=== PATIENT | female | born 1995 | race Caucasian/White ===

== ENCOUNTER 2019-12-25 17:05 | Inpatient (IN) ==
[2019-12-25] MEDS ORDERED: OXYTOCIN 30 UNITS/500 ML BAG IV PRN (18:42)
[2019-12-25 19:06] LABS: Hematocrit (blood only) 39.1 % (37-47); Hemoglobin 12.9 g/dL (12.0-16.0); Mean Corpuscular Hemoglobin 27.1 pg (25-34); Mean Corpuscular Volume 82.1 fL (80-100); Mean Platelet Volume 10.8 fL (7.4-10.4); Platelet Count 298 K/uL (130-400); RDW Coefficient of Variation 14.2 % (11.5-14.5); RDW Standard Deviation 42.4 fL (36.4-46.3); Red Blood Count 4.76 M/uL (4.2-5.4); White Blood Count 23.53 K/uL (4.8-10.8)
[2019-12-25] MEDS: LACTATED RINGER'S 1,000 ML IV PRN ×3 (19:22→21:20)
[2019-12-25] MEDS ORDERED: ePHEDrine sulfate 50 MG/ML AMP ONE (20:25)
[2019-12-25] MEDS ORDERED: BUPIVACAINE 0.25% 30 ML VIAL ONE (20:25)
[2019-12-25] MEDS ORDERED: fentaNYL citrate 100 MCG/2 ML VIAL ONE (20:25)
[2019-12-25] MEDS ORDERED: fentaNYL 2MCG/ML ROPIV 1.25MG/ML 100 ML BAG EPI ONE (20:26)
[2019-12-25] MEDS ORDERED: NALOXONE HCL 0.4 MG/1 ML VIAL/CARP IV PRN ×2 (20:45→22:19)
[2019-12-25] MEDS ORDERED: NALBUPHINE HCL INJ 10 MG/ML AMP IV PRN ×2 (20:45→22:19)
[2019-12-25] MEDS ORDERED: ONDANSETRON INJ 2 MG/ML 2 ML VIAL IV PRN ×2 (20:45→22:19)
[2019-12-25] MEDS ORDERED: NALOXONE HCL 1 MG in SODIUM CHLORIDE 0.9% 1000ML 1,000 ML IV PRN ×2 (20:45→22:19)
[2019-12-25] MEDS ORDERED: ePHEDrine sulfate 50 MG/ML AMP IV PRN ×2 (20:45→22:19)
[2019-12-25] MEDS ORDERED: fentaNYL 2MCG/ML ROPIV 1.25MG/ML 100 ML BAG EPI PRN (20:45)
[2019-12-25] MEDS ORDERED: DiphenhydrAMINE HCL 50 MG/ML VIAL IV PRN ×2 (20:45→22:19)
--- NOTE | 2019-12-25 20:46 | Anesthesiology Consultation ---
Date of Service December 25, 2019 Assessment & Plan Chart Review Chart Review: Patient NOT seen in Pre Admission Testing and Acceptable Risk for Labor Epidural Consults Requested none ASA ASA2 Proposed Anesthesia Anesthesia Type: Labor Epidural and CSE Risk / Benefits Reviewed With: PT / POA / Parent / Guardian, Accepts Plan and Informed Consent Obtained History Height/Weight Height: 5 ft 2 in Weight: 76.204 kg Allergies Allergy/AdvReac Type Severity Reaction Status Date / Time No Known Allergies Allergy Mild Unverified 05/24/07 09:09 Medications Home Medications Medication Instructions Recorded Confirmed Last Taken PNV cmb#95-ferrous fumarate-FA 1 tab PO DAILY 12/25/19 12/25/19 12/25/19 09:00 [] albuterol sulfate 2 puff INHALATION QID PRN 12/25/19 12/25/19 Unknown Active Medications Generic Name Dose Route Start Last Admin Trade Name Freq PRN Reason Stop Dose Admin Lactated Ringer's 1,000 mls @ 125 mls/hr 12/25/19 18:42 12/25/19 20:24 Lr IV 12/27/19 18:41 999 mls/hr .Q8H PRN Administration L&D Protocol Protocol NPO Date Last Intake of Fluids: 12/25/19 Time Last Intake of Fluids: 20:30 Date Last Intake of Solids: 12/25/19 Time Last Intake of Solids: 12:30 Past Medical History Medical History Asthma as a child. Has a rescue inhaler prn Injury of right thumb surgery on right thumb age 12 Exercise / Class Metabolic Activity II 4-5 Yardwork/Stairs/Walk up hill Past Family History Family History Other No history of previous surgery No known health problems Past Anesthesia History No Hx of Anesthesia Complications and No Family Hx of Anesthesia Complications History of PONV No Hx of PONV and No Hx of Motion Sickness Social History Smoking Status: Former smoker Smoking End Date: about one year ago Hx Alcohol Use: No Hx Substance Use: No Review of Systems no chest pain or sob Physical Exam Vital Signs Last Vital Signs Temp 37.0 C 12/25/19 20:39 Pulse 120 H 12/25/19 20:43 Resp 18 12/25/19 20:39 BP 136/66 12/25/19 20:37 Pulse Ox 99 12/25/19 20:43 ENMT Mouth: no TMJ abnormality Thyromental Distance: > or= 3.5 Finger Breadths Mallampati Class: II Neck normal visual inspection Respiratory normal respiratory effort Auscultation: lungs clear to auscultation bilaterally Cardiovascular Rate/Rhythm: regular rate and regular rhythm Musculoskeletal Spine: normal cervical ROM Neurologic moves all extremities Psychiatric Orientation: alert and oriented x 3 Testing Laboratory Results 12/25/19 18:55
--- NOTE | 2019-12-25 21:30 | Obstetrical Progress Note ---
Date of Service December 25, 2019 Assessment & Plan Admission and Anticipated Discharge Date Admission Date: December 25, 2019 Subjective Called to evaluate pt with decel after Epidural analgesia On arrival to room, pt was on her left side, with oxygen and IVF @ 999 VE 9;5/100/) station FHR 70's +ve response with scalp stimulation terbutaline SQ is ordered to be given Pt is turned on her right side on on all 4 extremities FHR accelerated to baseline in the 110 Plan continue to monitor FH Results & Data ([facility]) Vital Signs (Past 12 Hours) Vital Signs Temp Pulse Resp BP Pulse Ox 12/25/19 21:24 133 H 137/64 12/25/19 21:23 128 H 100 12/25/19 21:22 112 H 143/78 H 12/25/19 21:20 109 H 152/99 H 12/25/19 21:18 115 H 122/79 100 12/25/19 21:16 107 H 115/75 12/25/19 21:14 113 H 120/58 L 12/25/19 21:13 117 H 100 12/25/19 21:12 111 H 125/59 L 12/25/19 21:10 122 H 121/54 L 12/25/19 21:08 137 H 120/63 100 12/25/19 21:06 115 H 111/55 L 12/25/19 21:04 93 H 136/58 L 12/25/19 21:03 100 H 97 12/25/19 21:02 97 H 138/66 12/25/19 20:59 100 H 133/69 12/25/19 20:58 95 H 96 12/25/19 20:53 101 H 100 12/25/19 20:48 118 H 99 12/25/19 20:43 120 H 99 12/25/19 20:39 37.0 C 18 12/25/19 20:38 117 H 97 12/25/19 20:37 86 136/66 12/25/19 19:21 85 136/72 12/25/19 17:38 37.0 C 93 H 20 137/88 12/25/19 17:21 37.0 C 93 H 16 137/88
[2019-12-25] MEDS ORDERED: TERBUTALINE SULFATE 1 MG/ML VIAL SQ ONE (21:32)
[2019-12-25] MEDS ORDERED: NALOXONE HCL 0.08 MG in SYRINGE 1.8 ML IV PRN (22:19)
[2019-12-25] MEDS ORDERED: MoRPHine SULFATE PF 1 MG/ML 10 ML AMP/VIAL EPI ONE (22:19)
[2019-12-25] MEDS ORDERED: LACTATED RINGER'S 500 ML IV PRN (22:19)
[2019-12-25] MEDS ORDERED: CITRIC ACID/SODIUM CITRATE 15 ML UDC ONE (22:19)
[2019-12-25] MEDS ORDERED: HYDROmorphone INJ 0.5 MG/0.5 ML SYR IV PRN (22:19)
[2019-12-25] MEDS ORDERED: CITRIC ACID/SODIUM CITRATE 15 ML UDC PO ONE (22:30)
[2019-12-25] MEDS ORDERED: CEFAZOLIN 2,000 MG in SYRINGE 0 ML IV ONE (22:30)
[2019-12-25] MEDS ORDERED: LACTATED RINGER'S 1,000 ML IV SCH ×2 (22:30→23:45)
[2019-12-25] MEDS ORDERED: NO NARCOTICS OR SEDATIVES SCH (22:30)
[2019-12-25] MEDS ORDERED: CEFAZOLIN 3000MG/72.5 ML BAG IV ONE (22:30)
[2019-12-25] MEDS ORDERED: SODIUM CHLORIDE 0.9% 1000ML 1,000 ML IV SCH (22:30)
[2019-12-25] MEDS ORDERED: DC INTRASPINAL MORPHINE SCH (22:30)
[2019-12-25] MEDS ORDERED: CEFAZOLIN 250 MG/ML 1 GM VIAL ONE (22:38)
[2019-12-25] MEDS ORDERED: OXYTOCIN 10 UNITS/ML VIAL ONE ×3 (22:38→22:54)
[2019-12-25] MEDS ORDERED: LIDOCAINE/EPINEPHRINE 2% 1:200,000 20 ML SDV ONE (22:38)
[2019-12-25] MEDS ORDERED: MoRPHine SULFATE PF 1 MG/ML 10 ML AMP/VIAL ONE (22:40)
[2019-12-25] MEDS ORDERED: ONDANSETRON INJ 2 MG/ML 2 ML VIAL ONE (22:54)
[2019-12-25] MEDS ORDERED: METHYLERGONOVINE MALEATE 0.2 MG/ML AMP ONE (22:55)
[2019-12-25] MEDS ORDERED: PHENYLEPHRINE 100MCG/ML 5ML SYR ONE (22:56)
[2019-12-25] MEDS ORDERED: OXYTOCIN 10 UNITS/ML VIAL IM ONE (23:10)
[2019-12-25 23:20] LABS: Base Excess Cord Venous Blood -1.6 mEq/L (-7.7-1.9); Cord Venous Blood HCO3 25 mmol/L (18.4-26.8); Cord Venous Blood PCO2 49 mmHg (30.4-57.2); Cord Venous Blood PO2 20 mmHg (14.1-43.3); Cord Venous Blood pH 7.33 (7.20-7.44)
[2019-12-25 23:22] LABS: O2 Saturation Cord Venous Bld < 60.0 % (<68)
[2019-12-25] MEDS ORDERED: miSOPROStoL 200 MCG TAB ONE (23:37)
[2019-12-25] MEDS ORDERED: DIPHTHERIA/TETANUS/PERTUSSIS 0.5 ML SYR/VIAL IM ONE (23:44)
[2019-12-25] MEDS ORDERED: MAGNESIUM HYDROXIDE SUSP 30 ML UDC PO PRN (23:44)
[2019-12-25] MEDS ORDERED: BENZOCAINE 20% AER SPR 82.5 GM CAN EXT PRN (23:44)
[2019-12-25] MEDS ORDERED: SUPERCREAM 0.870% 15 GM JAR EXT PRN (23:44)
[2019-12-25] MEDS ORDERED: SENNA 8.6 MG TAB PO PRN (23:44)
[2019-12-25] MEDS ORDERED: HYDROCORTISONE ACETATE 25 MG SUPP PR PRN (23:44)
--- NOTE | 2019-12-25 23:47 | Post Operative Brief Note ---
Immediate Post Op Note v1 Date of Surgery December 25, 2019 Pre & Post Diagnosis Operation Date: 12/25/19 22:15 Pre-Op Diagnosis: 1.) Intolerance to Labor Post-Op Diagnosis: Same as Pre Op I identified the patient and participated in the time-out.: Yes Procedure Operation Date: 12/25/19 22:15 Actual Procedures p Primary Ceasarean Section for the of a viable female child at 2248. - Vinh Blevins MD Surgeon Vinh Blevins MD Bad Credit Collector ministerio Jones Rn Estimated Blood Loss 700 Findings Consistent with Post-Op Diagnosis Drains Seo Catheter
[2019-12-26] MEDS: KETOROLAC 30 MG/ML VIAL IV PRN ×2 (01:46→07:45)
[2019-12-26] MEDS: OXYTOCIN 20 UNITS in LACTATED RINGER'S 1,000 ML IV SCH ×2 (02:07→10:55)
--- NOTE | 2019-12-26 02:39 | Anesthesiology Progress Note ---
Date of Service December 26, 2019 Anesthesia Post Procedure Vital Signs Vital Signs: Temp Pulse Resp BP Pulse Ox 12/26/19 02:05 127 H 132/59 L 12/26/19 02:04 132 H 94 12/26/19 02:00 18 12/26/19 01:59 127 H 93 12/26/19 01:54 127 H 94 12/26/19 01:49 129 H 93 12/26/19 01:44 119 H 95 12/26/19 01:39 129 H 94 12/26/19 01:38 129 H 148/64 H 12/26/19 01:34 119 H 94 12/26/19 01:30 18 12/26/19 01:29 118 H 95 12/26/19 01:28 120 H 145/65 H 12/26/19 01:24 124 H 96 12/26/19 01:19 126 H 96 12/26/19 01:18 130 H 154/74 H 12/26/19 01:14 121 H 97 12/26/19 01:09 121 H 96 12/26/19 01:08 120 H 133/62 12/26/19 01:04 121 H 95 12/26/19 01:00 18 12/26/19 00:59 129 H 99 12/26/19 00:58 125 H 131/58 L 12/26/19 00:54 126 H 97 12/26/19 00:51 129 H 122/68 12/26/19 00:50 18 12/26/19 00:49 135 H 96 12/26/19 00:46 138 H 84 L 12/26/19 00:44 131 H 97 12/26/19 00:40 18 12/26/19 00:39 134 H 95 12/26/19 00:34 139 H 100 12/26/19 00:32 140 H 94 12/26/19 00:30 18 12/26/19 00:29 147 H 97 12/26/19 00:27 139 H 91 12/26/19 00:24 136 H 100 12/26/19 00:20 138 H 18 93 12/26/19 00:19 132 H 94 12/26/19 00:18 131 H 153/86 H 12/26/19 00:15 128 H 92 12/26/19 00:14 126 H 100 05/06/20 00:10 18 12/26/19 00:09 129 H 99 05 00:04 124 H 100 12/26/19 00:02 116 H 89 L 12/26/19 00:00 36.8 C 18 12/25/19 23:59 122 H 99 05 23:54 121 H 97 12/25/19 23:49 117 H 100 12/25/19 23:46 116 H 152/57 H 12/25/19 23:45 166/115 H 12/25/19 23:44 121 H 95 05 22:27 18 12/25/19 22:23 124 H 100 05 22:19 124 H 100 12/25/19 22:15 139 H 135/65 12/25/19 22:13 148 H 100 12/25/19 22:10 121 H 133/80 12/25/19 22:08 116 H 99 12/25/19 22:05 118 H 127/61 12/25/19 22:03 119 H 99 12/25/19 22:00 18 12/25/19 21:59 121 H 131/76 12/25/19 21:58 117 H 100 05 21:55 117 H 124/66 12/25/19 21:53 117 H 99 12/25/19 21:50 122 H 134/80 12/25/19 21:48 114 H 99 05 21:44 126 H 139/69 12/25/19 21:43 122 H 100 12/25/19 21:40 122 H 143/68 H 12/25/19 21:38 121 H 98 12/25/19 21:34 114 H 143/66 H 12/25/19 21:33 119 H 100 12/25/19 21:28 120 H 126/60 100 05/05 21:26 125 H 122/72 0505 21:24 133 H 137/64 05 21:23 128 H 100 05 21:22 112 H 143/78 H 12/25/19 21:20 109 H 152/99 H 12/25/19 21:18 115 H 122/79 100 05 21:16 107 H 115/75 05 21:14 113 H 120/58 L 12/25/19 21:13 117 H 100 12/25/19 21:12 111 H 125/59 L 12/25/19 21:10 122 H 121/54 L 12/25/19 21:08 137 H 120/63 100 12/25/19 21:06 115 H 111/55 L 12/25/19 21:04 93 H 136/58 L 12/25/19 21:03 100 H 97 12/25/19 21:02 97 H 138/66 12/25/19 20:59 100 H 133/69 12/25/19 20:58 95 H 96 12/25/19 20:53 101 H 100 12/25/19 20:48 118 H 99 12/25/19 20:43 120 H 99 12/25/19 20:39 37.0 C 18 12/25/19 20:38 117 H 97 12/25/19 20:37 86 136/66 12/25/19 19:21 85 136/72 12/25/19 17:38 37.0 C 93 H 20 137/88 12/25/19 17:21 37.0 C 93 H 16 137/88 Pain Intensity Lower Abdomen: Pain Intensity: 1 Transfer of Care Handoff Completed per policy Notes Mental Status: alert / awake / arousable Patient Amnestic to Procedure: Yes Nausea / Vomiting: adequately controlled Pain: adequately controlled Airway Patency, RR, SpO2: stable & adequate BP & HR: stable & adequate Hydration State: stable & adequate Neuraxial Anesthesia: was administered and sensory block is resolving Anesthetic Complications: no major complications apparent and Pt Satisfied with anesthetic care
[2019-12-26] MEDS ORDERED: CITRIC ACID/SODIUM CITRATE 15 ML UDC PO SCH (06:00)
[2019-12-26 07:00] LABS: Hematocrit (blood only) 31.7 % (37-47); Hemoglobin 10.6 g/dL (12.0-16.0); Mean Corpuscular Hemoglobin 27.7 pg (25-34); Mean Corpuscular Hgb Conc 33.4 g/dL (32-36); Mean Platelet Volume 10.6 fL (7.4-10.4); Platelet Count 231 K/uL (130-400); RDW Coefficient of Variation 14.4 % (11.5-14.5); RDW Standard Deviation 43.3 fL (36.4-46.3); Red Blood Count 3.82 M/uL (4.2-5.4); White Blood Count 24.87 K/uL (4.8-10.8)
[2019-12-26 07:19] LABS: Basophils # (auto) 0.02 K/uL (0-0.2); Basophils % (auto) 0.1 %; Eosinophils # (auto) 0.01 K/uL (0-0.5); Immature Granulocytes # (auto) 0.16 K/uL (0.00-0.02); Immature Granulocytes % (auto) 0.6 %; Lymphocytes # (auto) 2.79 K/uL (1.2-3.4); Lymphocytes % (auto) 11.2 %; Monocytes # (auto) 2.34 K/uL (0.11-0.59); Monocytes % (auto) 9.4 %; Neutrophils # (auto) 19.55 K/uL (1.4-6.5); Neutrophils % (auto) 78.7 %
--- NOTE | 2019-12-26 09:15 | Obstetrical Progress Note ---
Date of Service December 26, 2019 Assessment & Plan Admission and Anticipated Discharge Date Admission Date: December 25, 2019 Subjective Patient is seen and examined. She feels well, no complaints. Pain is under control with oral meds. Not OOB yet Voiding without difficulty Tolerating clear diet with out N&V Flatus neg BM neg Bleeding is minimal No fever/ chills/ CP/ SOB/ N&V/ Leg pain Breast feeding without problems Vital Signs Temp Pulse Pulse Resp BP BP Pulse Ox 12/26/19 08:31 16 97 12/26/19 07:48 36.9 C 90 16 135/76 98 12/26/19 07:40 16 97 12/26/19 06:11 20 100 12/26/19 05:15 16 98 12/26/19 04:15 36.7 C 98 H 20 120/69 96 12/26/19 03:15 36.9 C 112 H 18 121/74 92 12/26/19 02:15 37 C 126 H 20 125/74 94 12/26/19 02:05 127 H 132/59 L 12/26/19 02:04 132 H 94 12/26/19 02:00 18 12/26/19 01:59 127 H 93 12/26/19 01:54 127 H 94 12/26/19 01:49 129 H 93 12/26/19 01:44 119 H 95 12/26/19 01:39 129 H 94 12/26/19 01:38 129 H 148/64 H 12/26/19 01:34 119 H 94 12/26/19 01:30 18 12/26/19 01:29 118 H 95 12/26/19 01:28 120 H 145/65 H 12/26/19 01:24 124 H 96 12/26/19 01:19 126 H 96 12/26/19 01:18 130 H 154/74 H 12/26/19 01:14 121 H 97 12/26/19 01:09 121 H 96 12/26/19 01:08 120 H 133/62 12/26/19 01:04 121 H 95 12/26/19 01:00 18 12/26/19 00:59 129 H 99 12/26/19 00:58 125 H 131/58 L 12/26/19 00:54 126 H 97 12/26/19 00:51 129 H 122/68 12/26/19 00:50 18 12/26/19 00:49 135 H 96 12/26/19 00:46 138 H 84 L 12/26/19 00:44 131 H 97 12/26/19 00:40 18 12/26/19 00:39 134 H 95 12/26/19 00:34 139 H 100 12/26/19 00:32 140 H 94 12/26/19 00:30 18 12/26/19 00:29 147 H 97 12/26/19 00:27 139 H 91 12/26/19 00:24 136 H 100 12/26/19 00:20 138 H 18 93 12/26/19 00:19 132 H 94 12/26/19 00:18 131 H 153/86 H 12/26/19 00:15 128 H 92 12/26/19 00:14 126 H 100 12/26/19 00:10 18 12/26/19 00:09 129 H 99 12/26/19 00:04 124 H 100 12/26/19 00:02 116 H 89 L 12/26/19 00:00 36.8 C 18 12/25/19 23:59 122 H 99 12/25/19 23:54 121 H 97 12/25/19 23:49 117 H 100 12/25/19 23:46 116 H 152/57 H 12/25/19 23:45 166/115 H 12/25/19 23:44 121 H 95 12/25/19 22:27 18 12/25/19 22:23 124 H 100 12/25/19 22:19 124 H 100 12/25/19 22:15 139 H 135/65 12/25/19 22:13 148 H 100 12/25/19 22:10 121 H 133/80 12/25/19 22:08 116 H 99 12/25/19 22:05 118 H 127/61 12/25/19 22:03 119 H 99 12/25/19 22:00 18 12/25/19 21:59 121 H 131/76 12/25/19 21:58 117 H 100 12/25/19 21:55 117 H 124/66 12/25/19 21:53 117 H 99 12/25/19 21:50 122 H 134/80 12/25/19 21:48 114 H 99 12/25/19 21:44 126 H 139/69 12/25/19 21:43 122 H 100 12/25/19 21:40 122 H 143/68 H 12/25/19 21:38 121 H 98 12/25/19 21:34 114 H 143/66 H 12/25/19 21:33 119 H 100 12/25/19 21:28 120 H 126/60 100 12/25/19 21:26 125 H 122/72 12/25/19 21:24 133 H 137/64 12/25/19 21:23 128 H 100 12/25/19 21:22 112 H 143/78 H 12/25/19 21:20 109 H 152/99 H 12/25/19 21:18 115 H 122/79 100 12/25/19 21:16 107 H 115/75 Pulse Ox 12/26/19 08:31 12/26/19 07:48 12/26/19 07:40 12/26/19 06:11 12/26/19 05:15 12/26/19 04:15 12/26/19 03:15 12/26/19 02:15 94 12/26/19 02:05 12/26/19 02:04 12/26/19 02:00 12/26/19 01:59 12/26/19 01:54 12/26/19 01:49 12/26/19 01:44 12/26/19 01:39 12/26/19 01:38 12/26/19 01:34 12/26/19 01:30 12/26/19 01:29 12/26/19 01:28 12/26/19 01:24 12/26/19 01:19 12/26/19 01:18 12/26/19 01:14 12/26/19 01:09 12/26/19 01:08 12/26/19 01:04 12/26/19 01:00 12/26/19 00:59 12/26/19 00:58 12/26/19 00:54 12/26/19 00:51 12/26/19 00:50 12/26/19 00:49 12/26/19 00:46 12/26/19 00:44 12/26/19 00:40 12/26/19 00:39 12/26/19 00:34 12/26/19 00:32 12/26/19 00:30 12/26/19 00:29 12/26/19 00:27 12/26/19 00:24 12/26/19 00:20 12/26/19 00:19 12/26/19 00:18 12/26/19 00:15 12/26/19 00:14 12/26/19 00:10 12/26/19 00:09 12/26/19 00:04 12/26/19 00:02 12/26/19 00:00 12/25/19 23:59 12/25/19 23:54 12/25/19 23:49 12/25/19 23:46 12/25/19 23:45 12/25/19 23:44 12/25/19 22:27 12/25/19 22:23 12/25/19 22:19 12/25/19 22:15 12/25/19 22:13 12/25/19 22:10 12/25/19 22:08 12/25/19 22:05 12/25/19 22:03 12/25/19 22:00 12/25/19 21:59 12/25/19 21:58 12/25/19 21:55 12/25/19 21:53 12/25/19 21:50 12/25/19 21:48 12/25/19 21:44 12/25/19 21:43 12/25/19 21:40 12/25/19 21:38 12/25/19 21:34 12/25/19 21:33 12/25/19 21:28 12/25/19 21:26 12/25/19 21:24 12/25/19 21:23 12/25/19 21:22 12/25/19 21:20 12/25/19 21:18 12/25/19 21:16 Lab Results 12/25/19 12/25/19 12/26/19 Range/Units 18:55 23:05 06:50 WBC 23.53 H 24.87 H (4.8-10.8) K/uL RBC 4.76 3.82 L (4.2-5.4) M/uL Hgb 12.9 10.6 L (12.0-16.0) g/dL Hct 39.1 31.7 L (37-47) % MCV 82.1 83.0 (80-100) fL MCH 27.1 27.7 (25-34) pg MCHC 33.0 33.4 (32-36) g/dL RDW Std Deviation 42.4 43.3 (36.4-46.3) fL RDW Coeff of Aniya 14.2 14.4 (11.5-14.5) % Plt Count 298 231 (130-400) K/uL MPV 10.8 H 10.6 H (7.4-10.4) fL Immature Gran % (Auto) 0.6 % Neut % (Auto) 78.7 % Lymph % (Auto) 11.2 % [place] % (Auto) 9.4 % Eos % (Auto) 0.0 % Baso % (Auto) 0.1 % Immature Gran # (Auto) 0.16 H (0.00-0.02) K/uL Neut # (Auto) 19.55 H (1.4-6.5) K/uL Lymph # (Auto) 2.79 (1.2-3.4) K/uL [place] # (Auto) 2.34 H (0.11-0.59) K/uL Eos # (Auto) 0.01 (0-0.5) K/uL Baso # (Auto) 0.02 (0-0.2) K/uL Cord VBG pH 7.33 (7.20-7.44) Cord VBG pCO2 49 (30.4-57.2) mmHg Cord VBG pO2 20 (14.1-43.3) mmHg Cord VBG HCO3 25 (18.4-26.8) mmol/L Cord VBG Base Excess -1.6 (-7.7-1.9) mEq/L Cord VBG O2 Sat < 60.0 (<68) % Barometric Pressure 728.4 mm/Hg Blood Gas Comments A PE: General: Alert, orientedx3, NAD CVS: S1S2 RRR Lungs; CTAB Abd: soft, NT, ND, BS+, fundus firm, below Umbilicus Incision: Clean, dry, intact Perineum intact, Lochia rubra minimal Ext; NT, no edema, SCD's on AP: 24 yo s/p C Section, pod# 1 VSS Afebrile doing well Continue routine postop care Encourage ambulation, PO intake All questions were answered Results & Data ([facility]) Vital Signs (Past 12 Hours) Vital Signs Temp Pulse Pulse Resp BP BP Pulse Ox 12/26/19 08:31 16 97 12/26/19 07:48 36.9 C 90 16 135/76 98 12/26/19 07:40 16 97 12/26/19 06:11 20 100 12/26/19 05:15 16 98 12/26/19 04:15 36.7 C 98 H 20 120/69 96 12/26/19 03:15 36.9 C 112 H 18 121/74 92 12/26/19 02:15 37 C 126 H 20 125/74 94 12/26/19 02:05 127 H 132/59 L 12/26/19 02:04 132 H 94 12/26/19 02:00 18 12/26/19 01:59 127 H 93 12/26/19 01:54 127 H 94 12/26/19 01:49 129 H 93 12/26/19 01:44 119 H 95 12/26/19 01:39 129 H 94 12/26/19 01:38 129 H 148/64 H 12/26/19 01:34 119 H 94 12/26/19 01:30 18 12/26/19 01:29 118 H 95 12/26/19 01:28 120 H 145/65 H 12/26/19 01:24 124 H 96 12/26/19 01:19 126 H 96 12/26/19 01:18 130 H 154/74 H 12/26/19 01:14 121 H 97 12/26/19 01:09 121 H 96 12/26/19 01:08 120 H 133/62 12/26/19 01:04 121 H 95 12/26/19 01:00 18 12/26/19 00:59 129 H 99 12/26/19 00:58 125 H 131/58 L 12/26/19 00:54 126 H 97 12/26/19 00:51 129 H 122/68 12/26/19 00:50 18 12/26/19 00:49 135 H 96 12/26/19 00:46 138 H 84 L 12/26/19 00:44 131 H 97 12/26/19 00:40 18 12/26/19 00:39 134 H 95 12/26/19 00:34 139 H 100 12/26/19 00:32 140 H 94 12/26/19 00:30 18 12/26/19 00:29 147 H 97 12/26/19 00:27 139 H 91 12/26/19 00:24 136 H 100 12/26/19 00:20 138 H 18 93 12/26/19 00:19 132 H 94 12/26/19 00:18 131 H 153/86 H 12/26/19 00:15 128 H 92 12/26/19 00:14 126 H 100 12/26/19 00:10 18 12/26/19 00:09 129 H 99 12/26/19 00:04 124 H 100 12/26/19 00:02 116 H 89 L 12/26/19 00:00 36.8 C 18 12/25/19 23:59 122 H 99 12/25/19 23:54 121 H 97 12/25/19 23:49 117 H 100 12/25/19 23:46 116 H 152/57 H 12/25/19 23:45 166/115 H 12/25/19 23:44 121 H 95 12/25/19 22:27 18 12/25/19 22:23 124 H 100 12/25/19 22:19 124 H 100 12/25/19 22:15 139 H 135/65 12/25/19 22:13 148 H 100 12/25/19 22:10 121 H 133/80 12/25/19 22:08 116 H 99 12/25/19 22:05 118 H 127/61 12/25/19 22:03 119 H 99 12/25/19 22:00 18 12/25/19 21:59 121 H 131/76 12/25/19 21:58 117 H 100 12/25/19 21:55 117 H 124/66 12/25/19 21:53 117 H 99 12/25/19 21:50 122 H 134/80 05 21:48 114 H 99 12/25/19 21:44 126 H 139/69 05 21:43 122 H 100 12/25/19 21:40 122 H 143/68 H 0505 21:38 121 H 98 12/25/19 21:34 114 H 143/66 H 05/05/20 21:33 119 H 100 12/25/19 21:28 120 H 126/60 100 12/25/19 21:26 125 H 122/72 12/25/19 21:24 133 H 137/64 12/25/19 21:23 128 H 100 12/25/19 21:22 112 H 143/78 H 12/25/19 21:20 109 H 152/99 H 12/25/19 21:18 115 H 122/79 100 12/25/19 21:16 107 H 115/75 12/25/19 21:14 113 H 120/58 L 12/25/19 21:13 117 H 100 Pulse Ox 12/26/19 08:31 12/26/19 07:48 12/26/19 07:40 12/26/19 06:11 12/26/19 05:15 12/26/19 04:15 12/26/19 03:15 12/26/19 02:15 94 12/26/19 02:05 12/26/19 02:04 12/26/19 02:00 12/26/19 01:59 12/26/19 01:54 12/26/19 01:49 12/26/19 01:44 12/26/19 01:39 12/26/19 01:38 12/26/19 01:34 12/26/19 01:30 12/26/19 01:29 12/26/19 01:28 12/26/19 01:24 12/26/19 01:19 12/26/19 01:18 12/26/19 01:14 12/26/19 01:09 12/26/19 01:08 12/26/19 01:04 12/26/19 01:00 12/26/19 00:59 12/26/19 00:58 12/26/19 00:54 12/26/19 00:51 12/26/19 00:50 12/26/19 00:49 12/26/19 00:46 12/26/19 00:44 12/26/19 00:40 12/26/19 00:39 12/26/19 00:34 12/26/19 00:32 12/26/19 00:30 12/26/19 00:29 12/26/19 00:27 05/06 00:24 05/02/08 00:20 05/02/08 00:19 05/02/08 00:18 05 00:15 05 00:14 05 00:10 05 00:09 05 00:04 05 00:02 05 00:00 05 23:59 05/05 23:54 05/05 23:49 05/0520 23:46 05/0520 23:45 05/0520 23:44 05/0520 22:27 05/0520 22:23 05/0520 22:19 05/0520 22:15 05/0520 22:13 05/0520 22:10 05/0520 22:08 05/0520 22:05 05/0520 22:03 05/0520 22:00 05/0520 21:59 05/0520 21:58 05/05/20 21:55 05/05/20 21:53 05/05/20 21:50 05/05/20 21:48 05/05/20 21:44 05/05/20 21:43 05/05/20 21:40 05/05/20 21:38 05/05/20 21:34 05/05/20 21:33 05/05/20 21:28 05/05/20 21:26 05/05/20 21:24 05/05/20 21:23 05/05/20 21:22 05/05/20 21:20 05/05/20 21:18 05/05/20 21:16 05/05/20 21:14 05/05/20 21:13
--- NOTE | 2019-12-26 09:30 | Operative Report (OR) ---
DATE OF OPERATION: 12/25/2019 INDICATION FOR SURGERY: This is a 24-year-old G1, P0, presented this morning with possible rupture of membranes. The patient was laboring and she went on to be fully dilated. After receiving epidural, she experienced bradycardia for 7 minutes. Resuscitation was performed. The patient did well. She experienced another deceleration in the 80s for about 4 minutes. Her exam was unchanged. She was fully dilated and 0 station. Decision was therefore made to perform section. PREOPERATIVE DIAGNOSES: 1. at term. 2. intolerance to labor. 3. Nonreassuring heart rate. POSTOPERATIVE DIAGNOSES: 1. at term. 2. intolerance to labor. 3. Nonreassuring heart rate. SURGEON: Vinh Blevins MD. HORSE TRAINER: Mariann Khan. ANESTHESIOLOGIST: Dr. Evangelista. ANESTHESIA: Epidural anesthesia. ESTIMATED BLOOD LOSS: 700 mL. IV FLUIDS: 1400 mL. URINE OUTPUT: 425 mL clear urine at the end of the procedure. FINDINGS: Live in occiput posterior presentation. There was no meconium. No nuchal cord noted. The uterus and adnexa appeared grossly normal. Rest of abdominal and pelvic exam is unremarkable. COMPLICATIONS: None. DRAINS: Seo catheter. PATHOLOGY: Placenta. DISPOSITION: Stable to recovery room. DESCRIPTION OF PROCEDURE: The patient was taken to the operating room where she was prepped and draped in normal sterile fashion. A Pfannenstiel incision was made after timeout was called and carried down to the fascia with a scalpel. Fascia was incised in the midline and extended laterally on both sides. Two Kochers were used to grab the anterior part of the fascia. Fascia was sharply dissected off the rectus abdominus muscle. Same procedure was performed inferiorly. Peritoneum was identified and entered sharply. An Jenaro retractor was used for retraction. The vesicouterine peritoneum was sharply dissected off the lower segment of the uterus. Transverse incision was made in the lower segment of the uterus and extended laterally on both sides with bandage scissors. is in an occiput posterior presentation. A Victus retractor was used to deliver the patient's fetus out of the pelvis. was delivered. Cord was clamped and cut and handed over to the pediatric team. Infant's weight and Apgars in the pediatric record. Placenta was manually removed. Uterus was exteriorized and cleared of all clots and debris. Uterus was closed in 2 layers with Vicryl stitch. There was good hemostasis. The uterus was returned to the abdominal cavity. A Victus retractor was removed. A vesicouterine peritoneum were approximated using plain suture. The fascia was closed in a running fashion using Vicryl stitch. SubQ space was irrigated and skin was closed with Monocryl stitch. All instruments were removed from the vagina and accounted for x2 including sponges, needles and retractors. Baby and mother are doing well in recovery. I attest to the content of the Intraoperative Record and any orders documented therein. Any exception s are noted below.
[2019-12-26] MEDS: SIMETHICONE 80 MG CHEW PO SCH ×4 (09:35→20:50)
[2019-12-26] MEDS: DOCUSATE SODIUM 100 MG CAP PO SCH ×2 (09:35→20:49)
[2019-12-26] MEDS: PRENATAL VITAMIN 1 TAB PO SCH (09:35)
[2019-12-26] MEDS: FERROUS SULFATE 325 MG TAB PO SCH (09:35)
--- NOTE | 2019-12-26 11:17 | Anesthesiology Progress Note ---
Date of Service December 26, 2019 Anesthesia Post Procedure Vital Signs Vital Signs: Temp Pulse Pulse Resp BP BP Pulse Ox 12/26/19 11:06 16 97 12/26/19 10:08 16 98 12/26/19 09:37 16 98 12/26/19 08:31 16 97 12/26/19 07:48 36.9 C 90 16 135/76 98 12/26/19 07:40 16 97 12/26/19 06:11 20 100 12/26/19 05:15 16 98 12/26/19 04:15 36.7 C 98 H 20 120/69 96 12/26/19 03:15 36.9 C 112 H 18 121/74 92 12/26/19 02:15 37 C 126 H 20 125/74 94 12/26/19 02:05 127 H 132/59 L 12/26/19 02:04 132 H 94 12/26/19 02:00 18 12/26/19 01:59 127 H 93 12/26/19 01:54 127 H 94 12/26/19 01:49 129 H 93 12/26/19 01:44 119 H 95 12/26/19 01:39 129 H 94 12/26/19 01:38 129 H 148/64 H 12/26/19 01:34 119 H 94 12/26/19 01:30 18 12/26/19 01:29 118 H 95 12/26/19 01:28 120 H 145/65 H 12/26/19 01:24 124 H 96 12/26/19 01:19 126 H 96 12/26/19 01:18 130 H 154/74 H 12/26/19 01:14 121 H 97 12/26/19 01:09 121 H 96 12/26/19 01:08 120 H 133/62 12/26/19 01:04 121 H 95 12/26/19 01:00 18 12/26/19 00:59 129 H 99 12/26/19 00:58 125 H 131/58 L 12/26/19 00:54 126 H 97 12/26/19 00:51 129 H 122/68 12/26/19 00:50 18 12/26/19 00:49 135 H 96 12/26/19 00:46 138 H 84 L 12/26/19 00:44 131 H 97 12/26/19 00:40 18 12/26/19 00:39 134 H 95 12/26/19 00:34 139 H 100 12/26/19 00:32 140 H 94 12/26/19 00:30 18 12/26/19 00:29 147 H 97 12/26/19 00:27 139 H 91 12/26/19 00:24 136 H 100 12/26/19 00:20 138 H 18 93 12/26/19 00:19 132 H 94 12/26/19 00:18 131 H 153/86 H 12/26/19 00:15 128 H 92 12/26/19 00:14 126 H 100 12/26/19 00:10 18 12/26/19 00:09 129 H 99 12/26/19 00:04 124 H 100 12/26/19 00:02 116 H 89 L 12/26/19 00:00 36.8 C 18 12/25/19 23:59 122 H 99 12/25/19 23:54 121 H 97 12/25/19 23:49 117 H 100 12/25/19 23:46 116 H 152/57 H 12/25/19 23:45 166/115 H 12/25/19 23:44 121 H 95 12/25/19 22:27 18 12/25/19 22:23 124 H 100 12/25/19 22:19 124 H 100 12/25/19 22:15 139 H 135/65 12/25/19 22:13 148 H 100 12/25/19 22:10 121 H 133/80 12/25/19 22:08 116 H 99 12/25/19 22:05 118 H 127/61 12/25/19 22:03 119 H 99 12/25/19 22:00 18 12/25/19 21:59 121 H 131/76 12/25/19 21:58 117 H 100 12/25/19 21:55 117 H 124/66 12/25/19 21:53 117 H 99 12/25/19 21:50 122 H 134/80 12/25/19 21:48 114 H 99 12/25/19 21:44 126 H 139/69 12/25/19 21:43 122 H 100 12/25/19 21:40 122 H 143/68 H 12/25/19 21:38 121 H 98 12/25/19 21:34 114 H 143/66 H 12/25/19 21:33 119 H 100 12/25/19 21:28 120 H 126/60 100 12/25/19 21:26 125 H 122/72 12/25/19 21:24 133 H 137/64 12/25/19 21:23 128 H 100 12/25/19 21:22 112 H 143/78 H 12/25/19 21:20 109 H 152/99 H 12/25/19 21:18 115 H 122/79 100 12/25/19 21:16 107 H 115/75 12/25/19 21:14 113 H 120/58 L 12/25/19 21:13 117 H 100 12/25/19 21:12 111 H 125/59 L 12/25/19 21:10 122 H 121/54 L 12/25/19 21:08 137 H 120/63 100 12/25/19 21:06 115 H 111/55 L 12/25/19 21:04 93 H 136/58 L 12/25/19 21:03 100 H 97 12/25/19 21:02 97 H 138/66 12/25/19 20:59 100 H 133/69 12/25/19 20:58 95 H 96 12/25/19 20:53 101 H 100 12/25/19 20:48 118 H 99 12/25/19 20:43 120 H 99 12/25/19 20:39 37.0 C 18 12/25/19 20:38 117 H 97 12/25/19 20:37 86 136/66 12/25/19 19:21 85 136/72 12/25/19 17:38 37.0 C 93 H 20 137/88 12/25/19 17:21 37.0 C 93 H 16 137/88 Pulse Ox 12/26/19 11:06 12/26/19 10:08 12/26/19 09:37 12/26/19 08:31 12/26/19 07:48 12/26/19 07:40 12/26/19 06:11 12/26/19 05:15 12/26/19 04:15 12/26/19 03:15 12/26/19 02:15 94 12/26/19 02:05 12/26/19 02:04 12/26/19 02:00 12/26/19 01:59 12/26/19 01:54 12/26/19 01:49 12/26/19 01:44 12/26/19 01:39 12/26/19 01:38 12/26/19 01:34 12/26/19 01:30 12/26/19 01:29 12/26/19 01:28 12/26/19 01:24 12/26/19 01:19 12/26/19 01:18 12/26/19 01:14 12/26/19 01:09 12/26/19 01:08 12/26/19 01:04 12/26/19 01:00 12/26/19 00:59 12/26/19 00:58 12/26/19 00:54 12/26/19 00:51 12/26/19 00:50 12/26/19 00:49 12/26/19 00:46 12/26/19 00:44 12/26/19 00:40 12/26/19 00:39 12/26/19 00:34 12/26/19 00:32 12/26/19 00:30 12/26/19 00:29 12/26/19 00:27 12/26/19 00:24 12/26/19 00:20 12/26/19 00:19 12/26/19 00:18 12/26/19 00:15 12/26/19 00:14 12/26/19 00:10 12/26/19 00:09 12/26/19 00:04 12/26/19 00:02 12/26/19 00:00 12/25/19 23:59 12/25/19 23:54 12/25/19 23:49 12/25/19 23:46 12/25/19 23:45 12/25/19 23:44 12/25/19 22:27 12/25/19 22:23 12/25/19 22:19 12/25/19 22:15 12/25/19 22:13 12/25/19 22:10 12/25/19 22:08 12/25/19 22:05 12/25/19 22:03 12/25/19 22:00 12/25/19 21:59 12/25/19 21:58 12/25/19 21:55 12/25/19 21:53 12/25/19 21:50 12/25/19 21:48 12/25/19 21:44 12/25/19 21:43 12/25/19 21:40 12/25/19 21:38 12/25/19 21:34 12/25/19 21:33 12/25/19 21:28 12/25/19 21:26 12/25/19 21:24 12/25/19 21:23 12/25/19 21:22 12/25/19 21:20 12/25/19 21:18 12/25/19 21:16 12/25/19 21:14 12/25/19 21:13 12/25/19 21:12 12/25/19 21:10 12/25/19 21:08 12/25/19 21:06 12/25/19 21:04 12/25/19 21:03 12/25/19 21:02 12/25/19 20:59 12/25/19 20:58 12/25/19 20:53 12/25/19 20:48 12/25/19 20:43 12/25/19 20:39 12/25/19 20:38 12/25/19 20:37 12/25/19 19:21 12/25/19 17:38 12/25/19 17:21 Pain Intensity Lower Abdomen: Pain Intensity: 1 Transfer of Care Handoff Completed per policy Notes Mental Status: alert / awake / arousable Nausea / Vomiting: adequately controlled Pain: adequately controlled Airway Patency, RR, SpO2: stable & adequate BP & HR: stable & adequate Hydration State: stable & adequate Neuraxial Anesthesia: was administered and sensory block resolved Anesthetic Complications: no major complications apparent
[2019-12-26] MEDS ORDERED: PROMETHAZINE HCL 25 MG in SODIUM CHLORIDE 0.9% 50 ML IV PRN (16:19)
[2019-12-26] MEDS ORDERED: ONDANSETRON INJ 2 MG/ML 2 ML VIAL IV PRN (16:19)
[2019-12-26] MEDS ORDERED: DiphenhydrAMINE HCL 50 MG/ML VIAL IV PRN (16:19)
[2019-12-26] MEDS: IBUPROFEN 600 MG TAB PO PRN ×2 (16:23→20:49)
[2019-12-26] MEDS ORDERED: bisacodyL 5 MG TABEC PO SCH (20:00)
[2019-12-26] MEDS: OXYCODONE/ACETAMINOPHEN 5mg/325mg TAB PO PRN (22:31)
[2019-12-27 06:44] LABS: Basophils # (auto) 0.04 K/uL (0-0.2); Basophils % (auto) 0.2 %; Eosinophils # (auto) 0.07 K/uL (0-0.5); Eosinophils % (auto) 0.3 %; Hematocrit (blood only) 34.1 % (37-47); Hemoglobin 11.1 g/dL (12.0-16.0); Immature Granulocytes # (auto) 0.14 K/uL (0.00-0.02); Immature Granulocytes % (auto) 0.7 %; Lymphocytes # (auto) 2.71 K/uL (1.2-3.4); Lymphocytes % (auto) 12.8 %; Mean Corpuscular Hemoglobin 27.3 pg (25-34); Mean Corpuscular Hgb Conc 32.6 g/dL (32-36); Mean Platelet Volume 10.7 fL (7.4-10.4); Monocytes # (auto) 1.88 K/uL (0.11-0.59); Monocytes % (auto) 8.9 %; Neutrophils # (auto) 16.28 K/uL (1.4-6.5); Neutrophils % (auto) 77.1 %; Platelet Count 267 K/uL (130-400); RDW Coefficient of Variation 14.8 % (11.5-14.5); RDW Standard Deviation 45.4 fL (36.4-46.3); Red Blood Count 4.06 M/uL (4.2-5.4); White Blood Count 21.12 K/uL (4.8-10.8)
[2019-12-27] MEDS: OXYCODONE/ACETAMINOPHEN 5mg/325mg TAB PO PRN ×4 (07:10→20:28)
[2019-12-27] MEDS: IBUPROFEN 600 MG TAB PO PRN ×4 (07:11→20:29)
[2019-12-27] MEDS: DOCUSATE SODIUM 100 MG CAP PO SCH ×2 (07:51→20:28)
[2019-12-27] MEDS: FERROUS SULFATE 325 MG TAB PO SCH (07:51)
[2019-12-27] MEDS: PRENATAL VITAMIN 1 TAB PO SCH (07:51)
[2019-12-27] MEDS: SIMETHICONE 80 MG CHEW PO SCH ×4 (07:51→20:28)
--- NOTE | 2019-12-27 10:50 | Surgery Progress Note ---
Date of Service December 27, 2019 Subjective PPD#2 doing well out of bed tolerating diet passing gas Physical Exam Constitutional: WD/WN, vitals as above comfortable incision clean dry and intact no edema neg Rossy's Results & Data Vital Signs (Past 12 Hours) Vital Signs Temp Pulse Resp BP Pulse Ox 12/27/19 07:55 36.7 C 91 H 16 130/81 96 12/26/19 23:35 36.6 C 82 18 97/62 L 98
[2019-12-27] MEDS ORDERED: bisacodyL 10 MG SUPP PR PRN (23:44)
[2019-12-28] MEDS: OXYCODONE/ACETAMINOPHEN 5mg/325mg TAB PO PRN ×3 (00:26→09:02)
[2019-12-28] MEDS: IBUPROFEN 600 MG TAB PO PRN ×3 (00:27→09:02)
--- NOTE | 2019-12-28 07:35 | Obstetrical Progress Note ---
Date of Service December 28, 2019 Assessment & Plan Admission and Anticipated Discharge Date Admission Date: December 25, 2019 Subjective Patient is seen and examined. She feels well, no complaints. Wants to be discharged today Pain is under control with oral meds. Ambulating without dizziness Voiding without difficulty Tolerating regular diet with out N&V Flatus + BM neg Bleeding is minimal No fever/ chills/ CP/ SOB/ N&V/ Leg pain Breast feeding without problems Vital Signs Temp Pulse Resp BP Pulse Ox 12/28/19 00:00 36.7 C 92 H 18 116/76 97 12/27/19 19:40 36.5 C 87 18 126/79 96 12/27/19 15:00 36.6 C 89 16 117/74 98 12/27/19 07:55 36.7 C 91 H 16 130/81 96 Lab Results 12/25/19 12/25/19 12/26/19 Range/Units 18:55 23:05 06:50 WBC 23.53 H 24.87 H (4.8-10.8) K/uL RBC 4.76 3.82 L (4.2-5.4) M/uL Hgb 12.9 10.6 L (12.0-16.0) g/dL Hct 39.1 31.7 L (37-47) % MCV 82.1 83.0 (80-100) fL MCH 27.1 27.7 (25-34) pg MCHC 33.0 33.4 (32-36) g/dL RDW Std Deviation 42.4 43.3 (36.4-46.3) fL RDW Coeff of Aniya 14.2 14.4 (11.5-14.5) % Plt Count 298 231 (130-400) K/uL MPV 10.8 H 10.6 H (7.4-10.4) fL Immature Gran % (Auto) 0.6 % Neut % (Auto) 78.7 % Lymph % (Auto) 11.2 % [place] % (Auto) 9.4 % Eos % (Auto) 0.0 % Baso % (Auto) 0.1 % Immature Gran # (Auto) 0.16 H (0.00-0.02) K/uL Neut # (Auto) 19.55 H (1.4-6.5) K/uL Lymph # (Auto) 2.79 (1.2-3.4) K/uL [place] # (Auto) 2.34 H (0.11-0.59) K/uL Eos # (Auto) 0.01 (0-0.5) K/uL Baso # (Auto) 0.02 (0-0.2) K/uL Cord VBG pH 7.33 (7.20-7.44) Cord VBG pCO2 49 (30.4-57.2) mmHg Cord VBG pO2 20 (14.1-43.3) mmHg Cord VBG HCO3 25 (18.4-26.8) mmol/L Cord VBG Base Excess -1.6 (-7.7-1.9) mEq/L Cord VBG O2 Sat < 60.0 (<68) % Barometric Pressure 728.4 mm/Hg Blood Gas Comments INFANT A 12/27/19 Range/Units 06:24 WBC 21.12 H (4.8-10.8) K/uL RBC 4.06 L (4.2-5.4) M/uL Hgb 11.1 L (12.0-16.0) g/dL Hct 34.1 L (37-47) % MCV 84.0 (80-100) fL MCH 27.3 (25-34) pg MCHC 32.6 (32-36) g/dL RDW Std Deviation 45.4 (36.4-46.3) fL RDW Coeff of Aniya 14.8 H (11.5-14.5) % Plt Count 267 (130-400) K/uL MPV 10.7 H (7.4-10.4) fL Immature Gran % (Auto) 0.7 % Neut % (Auto) 77.1 % Lymph % (Auto) 12.8 % [place] % (Auto) 8.9 % Eos % (Auto) 0.3 % Baso % (Auto) 0.2 % Immature Gran # (Auto) 0.14 H (0.00-0.02) K/uL Neut # (Auto) 16.28 H (1.4-6.5) K/uL Lymph # (Auto) 2.71 (1.2-3.4) K/uL [place] # (Auto) 1.88 H (0.11-0.59) K/uL Eos # (Auto) 0.07 (0-0.5) K/uL Baso # (Auto) 0.04 (0-0.2) K/uL Cord VBG pH (7.20-7.44) Cord VBG pCO2 (30.4-57.2) mmHg Cord VBG pO2 (14.1-43.3) mmHg Cord VBG HCO3 (18.4-26.8) mmol/L Cord VBG Base Excess (-7.7-1.9) mEq/L Cord VBG O2 Sat (<68) % Barometric Pressure mm/Hg Blood Gas Comments PE: General: Alert, orientedx3, NAD CVS: S1S2 RRR Lungs; CTAB Abd: soft, NT, ND, BS+, fundus firm, below Umbilicus Incision: Clean, dry, intact Perineum intact, Lochia rubra minimal Ext; NT, no edema AP: 24 yo s/p C Section, pod# 3 VSS Afebrile doing well Continue routine postop care Encourage ambulation, PO intake All questions were answered D/C home , f/u in office Discussed when to call Results & Data ([facility]) Vital Signs (Past 12 Hours) Vital Signs Temp Pulse Resp BP Pulse Ox 12/28/19 00:00 36.7 C 92 H 18 116/76 97 12/27/19 19:40 36.5 C 87 18 126/79 96
[2019-12-28 07:50] LABS: Basophils # (auto) 0.05 K/uL (0-0.2); Basophils % (auto) 0.3 %; Eosinophils % (auto) 2.3 %; Hematocrit (blood only) 31.9 % (37-47); Hemoglobin 10.4 g/dL (12.0-16.0); Immature Granulocytes # (auto) 0.11 K/uL (0.00-0.02); Immature Granulocytes % (auto) 0.6 %; Lymphocytes # (auto) 3.47 K/uL (1.2-3.4); Lymphocytes % (auto) 19.9 %; Mean Corpuscular Hemoglobin 27.5 pg (25-34); Mean Corpuscular Hgb Conc 32.6 g/dL (32-36); Mean Corpuscular Volume 84.4 fL (80-100); Mean Platelet Volume 10.4 fL (7.4-10.4); Neutrophils # (auto) 11.98 K/uL (1.4-6.5); Neutrophils % (auto) 68.9 %; Platelet Count 273 K/uL (130-400); RDW Coefficient of Variation 14.7 % (11.5-14.5); RDW Standard Deviation 45.4 fL (36.4-46.3); Red Blood Count 3.78 M/uL (4.2-5.4); White Blood Count 17.41 K/uL (4.8-10.8)
[2019-12-28] MEDS: SIMETHICONE 80 MG CHEW PO SCH (09:01)
[2019-12-28] MEDS: PRENATAL VITAMIN 1 TAB PO SCH (09:03)
--- NOTE | 2019-12-30 15:43 | Discharge Summary (DS) ---
CHIEF COMPLAINT: One at term. HISTORY OF PRESENT ILLNESS: This is a 24-year-old G1, P0 with due date of 12/26/2019, who presented to Labor and Delivery on 12/25/2019 with spontaneous rupture of membranes. The patient was seen in labor and continued to progress. She received epidural and after epidural experienced bradycardia. She was examined at that time and found to be 9 cm dilated. Fetus was resuscitated successfully. The patient went on to be fully dilated. She experienced another episode of bradycardia. Even though the patient was fully dilated, head was still high. There was concern of repetitive bradycardia at this time. A discussion took previously with the patient, spouse and myself. Decision was therefore made to perform section. The patient agreed. section was performed and details of the surgery and 's information are on the respective records. The patient did well postop and met all milestones, so on postop day 1, which was 12/26/2019, the patient was able to ambulate, tolerate p.o. food and diet. Activity was advanced. The patient was discharged home in stable condition on 12/28/2019. PAST MEDICAL HISTORY: The patient has history of asthma. PAST SURGICAL HISTORY: None. SOCIAL HISTORY: The patient denies tobacco, drug or alcohol use. FAMILY HISTORY: Noncontributory. ALLERGIES: The patient had no known drug allergies. REVIEW OF SYSTEMS: Negative except as dictated in HPI. PHYSICAL EXAMINATION: GENERAL: Well-developed, well-nourished white female. VITAL SIGNS: On 12/28/2019 are as follows: Blood pressure 116/76, pulse 92, respirations 18, temperature 36.5. HEART: S1, S2, regular rhythm and rate. LUNGS: Clear to auscultation bilaterally. ABDOMEN: Nontender, nondistended. Incision clean, dry and intact. Positive bowel sounds. EXTREMITIES: No cyanosis, clubbing or edema. LABORATORY DATA: On 12/28/2019 showed hemoglobin of 10.4, hematocrit of 31.9. CONDITION ON DISCHARGE: Stable. OPERATION: Primary section for intolerance to labor. PLAN ON DISCHARGE: The patient is discharged home with instructions regarding activity, diet, followup appointment and medications.
== END 2019-12-28 11:30 | disposition home or self-care (01) | DRG 788 ==
LOC: OPB 17:05 → 4S1 17:05 → 4S2 12-26 02:58